=== PATIENT | female | born 1985 | race Caucasian/White ===

== ENCOUNTER 2020-11-27 14:41 | Emergency (ER) | payer MEDICAID ==
[~2020-11-27] VITALS: Ht 157.5 cm; Wt 54.4 kg
[2020-11-27 14:52] VITALS: BP 130/91
--- NOTE | 2020-11-27 14:57 | NUR ---
pt arrives to ER with complaints of chest pain. pt states falling forward on gravel hitting face and left arm. pt states waking up this morning chest pain on deep inspiration. pt describes pain as pressure radiates to her back. pt denies previous cardiac history
--- NOTE | 2020-11-27 16:55 | Emergency Room Report ---
History of Present Illness General Chief Complaint: Chest Pain Source: Patient Present Illness HPI 35-year-old female with no significant past medical history here complaining of left-sided periorbital pain, left-sided chest pain and left wrist and hand pain status post fall. Patient reports that she fell 2 days ago facedown and prevent herself from rolling with outstretched left wrist. Bruising noted periorbital on the left side. Denies nausea vomiting dizziness. Complains of headache and left wrist pain. Also reports that this morning she woke up with left-sided chest pain without any radiation. Also complains of palpitation. Has not taken medication for symptom relief. Denies . Patient is neurovascularly intact. Denies loss of consciousness COVID-19 Screening Contact w/high risk pt: No Experienced COVID-19 symptoms?: No COVID-19 Testing performed [employer]: No COVID-19 Screening: Negative COVID-19 Patient History Past Medical History: see triage record Past Surgical History: none Pertinent Family History: none Now: No Immunizations: UTD Reviewed Nursing Documentation: PMH: Agreed; PSxH: Agreed Nursing Documentation-PMH Hx Cardiac Problems: No Hx Hypertension: No Hx Pacemaker: No Hx Asthma: No Hx COPD: No Hx Diabetes: No Hx Cancer: No Hx Gastrointestinal Problems: No Hx Dialysis: No History Of Psychiatric Problem: No Hx Neurological Problems: No Hx Cerebrovascular Accident: No Hx Seizures: No Review of Systems All Other Systems: negative except mentioned in HPI Physical Exam Vital Signs Date Time Temp Pulse Resp B/P (MAP) Pulse Ox O2 Delivery O2 Flow Rate FiO2 11/27/20 14:52 98.1 97 18 130/91 (104) 98 Room Air Sp02 EP Interpretation: reviewed, normal General Appearance: no apparent distress, alert, GCS 15, non-toxic Head: normocephalic, atraumatic Eyes: bilateral eye normal inspection, bilateral eye PERRL ENT: no angioedema, normal voice Neck: full range of motion, supple, no meningismus, no bony tend, other - nexus criteria negative Respiratory: chest non-tender, no respiratory distress, no retraction, no accessory muscle use, no wheezing Cardiovascular #1: regular rate, rhythm, no edema, no gallop, no murmur Cardiovascular #2: 2+ carotid (R), 2+ carotid (L), 2+ radial (R), 2+ radial (L), 2+ dorsalis pedis (R), 2+ dorsalis pedis (L) Gastrointestinal: non tender, soft, no mass, no organomegaly, no peritonitis, no bruit, non-distended, no guarding Rectal: deferred Musculoskeletal: back normal, pelvis stable, no lower extremity edema, non- tender Neurologic: alert, motor strength/tone normal, oriented x3, sensory intact, responsive, speech normal Psychiatric: judgement/insight normal, memory normal, mood/affect normal, no max icidal/homicidal ideation Skin: no rash Lymphatic: no adenopathy Medical Decision Making PA Attestation All my diagnosis and treatment plans were reviewed ad discussed with my max pervising physician Dr. Arreaga Diagnostic Impression: Primary Impression: Head contusion Additional Impressions: Chest wall contusion Wrist sprain ER Course 35-year-old female with no significant past medical history here complaining of left-sided periorbital pain, left-sided chest pain and left wrist and hand pain status post fall. Patient reports that she fell 2 days ago facedown and prevent herself from rolling with outstretched left wrist. Bruising noted periorbital on the left side. Denies nausea vomiting dizziness. Complains of headache and left wrist pain. Also reports that this morning she woke up with left-sided chest pain without any radiation. Also complains of palpitation. Has not taken medication for symptom relief. Denies . Patient is neurovascularly intact. Denies loss of consciousness Ddx considered but are not limited to: cerebral hematoma, concussion, skull fracture, head contusion Pneumothorax, rib fracture, chest contusion, wrist pain versus wrist fracture Vital signs: are WNL, pt. is afebrile H&PE are most consistent with: Head contusion, chest contusion, wrist sprain ORDERS: head CT no contrast, rib x-ray with PA chest, left wrist and hand x-ray, Robaxin, Motrin ED INTERVENTIONS: None required at this time. DISCHARGE: At this time pt. is stable for d/c to home. Will provide printed patient care instructions, and any necessary prescriptions. Care plan and follow up instructions have been discussed with the patient prior to discharge. Patient take medication as directed, follow primary care provider. Specialist, patient was wearing Ddx considered but are not limited to : Wrist sprain, wrist strain, wrist fracture Vital signs: are WNL, pt. is afebrile H&PE are most consistent with: ORDERS: Wrist x-ray ED INTERVENTIONS: DISCHARGE: At this time pt. is stable for d/c to home. Will provide printed patient care instructions, and any necessary prescriptions. Care plan and follow up instructions have been discussed with the patient prior to discharge patient to follow primary care provider, take medication as directed, patient was wearing the wrist splint upon arrival advised to continue with her dog. If worsening symptoms return to the emergency room. Also discussed that in case there is a hairline fracture ribs treatment remains the same as treatment of fracture rib is the same as a nonfractured rib Other X-Ray Diagnostic Results Other X-Ray Diagnostic Results #1: X-Ray ordered: Left wrist # of Views/Limited Vs Complete: 3 View Indication: Pain EP Interpretation: Yes PA Xray: Interpretation reviewed, by supervising MD, and agrees with findings. Interpretation: no dislocation, no fractures Impression: No acute disease Electronically Signed by: Roque DOMÍNGUEZ Scribe Text Procedure: XRAY Wrist Complete L Clinical Indication:Pain, trauma Technique: 3 views of the left wrist Comparison: None Findings: No acute fracture. No dislocation. Joint spaces are preserved. Impression: No acute bony trauma Other X-Ray Diagnostic Results #2: X-Ray ordered: Left hand # of Views/Limited Vs Complete: 3 View Indication: Pain EP Interpretation: Yes PA Xray: Interpretation reviewed, by supervising MD, and agrees with findings. Interpretation: no dislocation, no soft tissue swelling, no fractures Impression: No acute disease Electronically Signed by: Roque Garcia PA-C PA Scribe Text Technique: 3 views left hand Comparison: none Findings: No acute fracture. No dislocation. Joint spaces are preserved. Impression: Negative Other X-Ray Diagnostic Results #3: X-Ray ordered: Ribs # of Views/Limited Vs Complete: 4 View Indication: Pain EP Interpretation: Yes PA Xray: Interpretation reviewed, by supervising MD, and agrees with findings. Interpretation: no dislocation, no soft tissue swelling, no fractures Impression: No acute disease Electronically Signed by: Roque Garcia PA-C CT/MRI/US Diagnostic Results CT/MRI/US Diagnostic Results : Imaging Test Ordered: Head CT no contrast Impression comparison: None. Findings: There is frontal and parietal cerebral cortical volume loss. The ventricles and extra axial CSF spaces are normal. So-white differentiation is normal. Visualized orbits and sinuses are unremarkable. The mastoids are clear. The calvarium is intact. Impression: Frontal and parietal cortical volume loss, advanced for age Negative for acute intracranial bleed or mass effect. Last Vital Signs Date Time Temp Pulse Resp B/P (MAP) Pulse Ox O2 Delivery O2 Flow Rate FiO2 11/27/20 16:07 78 17 Room Air 11/27/20 14:52 98.1 130/91 (104) 98 Disposition: HOME, SELF-CARE Condition: Stable Scripts Ibuprofen* (MOTRIN*) 600 Mg Tablet 600 MG ORAL Q8H PRN for FOR PAIN, #30 TAB 0 Refills Prov: Roque Johnston 11/27/20 Methocarbamol* (ROBAXIN-500*) 500 Mg Tablet 500 MG ORAL TID PRN for For Pain, #15 TAB 0 Refills Prov: Roque Johnston 11/27/20 Referrals: [facility],REFERRING (PCP) Patient Instructions: Chest Contusion, [id number], Facial or Scalp Contusion, [id number], Wrist Sprain Additional Instructions: Take medication as directed, follow-up primary care provider, worsening symptoms return to the emergency room Roque Johnston Nov 27, 2020 16:55
--- NOTE | 2020-11-27 17:12 | Diagnostic Imaging Report ---
Indications: Pain, status post fall Technique: Spiral acquisitions obtained through the brain. Angled axial and coronal 5 x 5 mm slices were reconstructed. Total dose length product 992 mGycm. CTDI vol(s) 53 mGy. Dose reduction achieved using automated exposure control Comparison: None. Findings: There is frontal and parietal cerebral cortical volume loss. The ventricles and extra axial CSF spaces are normal. So-white differentiation is normal. Visualized orbits and sinuses are unremarkable. The mastoids are clear. The calvarium is intact. Impression: Frontal and parietal cortical volume loss, advanced for age Negative for acute intracranial bleed or mass effect. The CT scanner at [facility] is accredited by the [employer] and the scans are performed using protocols designed to limit radiation exposure to as low as reasonably achievable to attain images of sufficient resolution adequate for diagnostic evaluation.
[2020-11-27] MEDS ORDERED: IBUPROFEN600 M1 ORAL (17:39)
[2020-11-27] MEDS ORDERED: ROBAXIN-500MG ORAL (17:39)
--- NOTE | 2020-11-27 18:10 | Diagnostic Imaging Report ---
Indication: Pain in the middle the chest status post fall 2 days ago Technique: One view of the chest, 2 views of the bilateral ribs Comparison: none Findings: Lungs and pleural spaces are clear. The heart size is normal. No acute fracture. No pneumothorax Impression: Negative
--- NOTE | 2020-11-27 18:11 | Diagnostic Imaging Report ---
Clinical Indication:Pain, trauma Technique: 3 views of the left wrist Comparison: None Findings: No acute fracture. No dislocation. Joint spaces are preserved. Impression: No acute bony trauma
--- NOTE | 2020-11-27 18:13 | Diagnostic Imaging Report ---
Indication: Pain, trauma, status post fall 2 days ago Technique: 3 views left hand Comparison: none Findings: No acute fracture. No dislocation. Joint spaces are preserved. Impression: Negative
== END 2020-11-27 17:41 | disposition home or self-care (01) ==
LOC: EMR 15:09
DX: S20.219A Contusion of unspecified front wall of thorax, initial encounter (principal); S00.93XA Contusion of unspecified part of head, initial encounter; S63.502A Unspecified sprain of left wrist, initial encounter; W19.XXXA Unspecified fall, initial encounter; Y92.9 Unspecified place or not applicable
CPT/HCPCS: 70450; 71111; 73110; 73130; 93005; Z7502; 99284